=== PATIENT | female | born 1940 | race Caucasian/White ===

== ENCOUNTER 2019-02-26 15:31 | Observation (INO) ==
[2019-02-26 17:29] LABS: Basophils % 0.5 % (0.0-0.8); Eosinophils # 0.1 10*3/uL (0.0-0.87); Eosinophils % 1.3 % (0.00-10.9); Hematocrit 39.3 VOL% (35.7-47.0); Hemoglobin 14.1 GM/DL (12.0-16.0); Immature Granulocytes % 0.4 %; Immature Granulocytes Absolute 0.03 #; Lymphocytes # 2.3 10*3/uL (1.4-4.0); Lymphocytes % 27.3 % (21.3-54.2); Mean Corpuscular HGB Conc 35.9 GM/DL (32-36); Mean Corpuscular Volume 97.3 FL (87-102); Mean Platelet Volume 9.1 FL (9.6-12.0); Monocytes % 6.9 % (1.7-12.7); Neutrophils % 63.6 % (38.7-73.9); Platelet Count 203 T/CUMM (130-400); Red Blood Count 4.04 MC/CUMM (3.8-5.5); Red Cell Distribution Width 12.6 % (9.3-17.3); White Blood Count 8.2 T/CUMM (4-12)
[2019-02-26 17:36] LABS: PT Patient Result 10.7 SECS (9.6-12.2)
[2019-02-26 17:50] LABS: Apearance,Urine CLOUDY (Clear); Bacteria,Urine Moderate /HPF (Few); Bilirubin,Urine Negative (Negative); Blood, Urine Small mg/dL (Negative); Glucose,Urine (UA) Negative (Negative); Hyaline Casts,Urine 4 /LPF (0-3); Ketones,Urine Negative (Negative); Mucus,Urine Occasional /LPF (Occasional); Nitrite,Urine Positive (Negative); Protein,Urine Negative; RBC,Urine 1 /HPF (0-4); Squamous Epithelial Cell,Urine Occasional /HPF (0-10); Urine Color Yellow (Yellow); Urine Specific Gravity 1.008 (1.001-1.035); Urine Urobilinogen < 2.0 EU/DL (0.2-1.0); WBC,Urine 3 /HPF (0-6)
[2019-02-26 18:00] LABS: Albumin 3.6 G/DL (3.4-5.0); Bilirubin,Total 1.3 MG/DL (0.2-1.0); Calcium 8.9 MG/DL (8.5-10.1); Osmolality,Calculated 289.4 MOS/KG (273-304); Total Protein 7.5 G/DL (6.4-8.3)
[2019-02-26] MEDS ORDERED: POTASSIUM CHLORIDE 20 MEQ TABLET PO STA (18:17)
[2019-02-26] MEDS ORDERED: cefTRIAXone 1,000 MG in SODIUM CHLORIDE 0.9% 100 ML IV STA (18:18)
[2019-02-26] MEDS ORDERED: ACETAMINOPHEN 325 MG TABLET PO PRN (18:47)
[2019-02-26] MEDS ORDERED: ONDANSETRON 4 MG/2 ML VIAL IV PRN (18:47)
[2019-02-26] MEDS ORDERED: traMADol 50 MG TABLET PO PRN (18:52)
[2019-02-26] MEDS ORDERED: SODIUM CHLORIDE 0.9% 1,000 ML IV SCH (19:00)
[2019-02-26] MEDS: PHENYTOIN ER 100 MG CAPSULE PO SCH (21:57)
[2019-02-26] MEDS: clonazePAM 0.5 MG TABLET PO SCH (21:57)
[2019-02-26] MEDS: MEMANTINE 10 MG TABLET PO SCH (21:58)
[2019-02-26] MEDS: ENOXAPARIN 40 MG/0.4 ML SYRINGE SUBCUT SCH (21:58)
[2019-02-26] MEDS: TEMAZEPAM 15 MG CAPSULE PO SCH (21:58)
[2019-02-26] MEDS: DOCUSATE/SENNA 50-8.6 MG TABLET PO SCH (21:58)
[2019-02-26] MEDS: ROSUVASTATIN 20 MG TABLET PO SCH (21:58)
[2019-02-26] MEDS: LACOSAMIDE 50 MG TABLET PO SCH (21:58)
[2019-02-26] MEDS: ASPIRIN EC 81 MG TABLET PO SCH (21:58)
[2019-02-26] MEDS ORDERED: POTASSIUM CHLORIDE 20 MEQ TABLET PO ONE (22:00)
[2019-02-26] MEDS ORDERED: NITROGLYCERIN SL 0.4 MG TABLET SL PRN (22:22)
[2019-02-26] MEDS ORDERED: GLUCAGON 1 MG VIAL IM PRN (22:22)
[2019-02-26] MEDS ORDERED: DEXTROSE 50% 25 GM/50 ML VIAL IV PRN (22:22)
[2019-02-26] MEDS: INSULIN REGULAR 100 UNIT/ML SUBCUT SCH (23:18)
[2019-02-26] MEDS: CARVEDILOL 12.5 MG TABLET PO SCH (23:18)
[2019-02-27 06:51] LABS: Basophils # 0.1 10*3/uL (0.0-0.2); Basophils % 0.8 % (0.0-0.8); Eosinophils # 0.2 10*3/uL (0.0-0.87); Eosinophils % 3.7 % (0.00-10.9); Hematocrit 38.1 VOL% (35.7-47.0); Hemoglobin 13.4 GM/DL (12.0-16.0); Immature Granulocytes % 0.5 %; Immature Granulocytes Absolute 0.03 #; Lymphocytes # 2.3 10*3/uL (1.4-4.0); Mean Corpuscular HGB Conc 35.2 GM/DL (32-36); Mean Corpuscular Volume 98.4 FL (87-102); Monocytes % 8.2 % (1.7-12.7); Neutrophils % 51.8 % (38.7-73.9); Platelet Count 172 T/CUMM (130-400); Red Blood Count 3.87 MC/CUMM (3.8-5.5); Red Cell Distribution Width 12.9 % (9.3-17.3); White Blood Count 6.6 T/CUMM (4-12)
[2019-02-27 07:14] LABS: Alanine Aminotransferase 76 U/L (13-56); Albumin 3.2 G/DL (3.4-5.0); Alkaline Phosphatase 139 U/L (45-117); Aspartate Amino Transferase 68 U/L (0-37); Bilirubin,Total < 0.39 MG/DL (0.2-1.0); Blood Urea Nitrogen 25 MG/DL (7-18); Calcium 8.6 MG/DL (8.5-10.1); Estimated Glom Filtration Rate 59 ML/MIN; Glucose 159 MG/DL (74-106); Osmolality,Calculated 281.7 MOS/KG (273-304); Total Protein 6.7 G/DL (6.4-8.3)
[2019-02-27] MEDS: INSULIN REGULAR 100 UNIT/ML SUBCUT SCH ×4 (08:36→21:36)
[2019-02-27] MEDS: MEMANTINE 10 MG TABLET PO SCH ×2 (08:37→21:36)
[2019-02-27] MEDS: ISOSORBIDE MONONITRATE 30 MG TABLET PO SCH (08:37)
[2019-02-27] MEDS: LACOSAMIDE 50 MG TABLET PO SCH ×2 (08:37→21:35)
[2019-02-27] MEDS: POTASSIUM CHLORIDE 20 MEQ TABLET PO PRN ×4 (08:37→16:40)
[2019-02-27] MEDS: PHENYTOIN ER 100 MG CAPSULE PO SCH ×2 (08:37→21:35)
[2019-02-27] MEDS: FAMOTIDINE 20 MG TABLET PO SCH (08:37)
[2019-02-27] MEDS: FUROSEMIDE 40 MG TABLET PO SCH (08:38)
[2019-02-27] MEDS: hydroCHLOROthiazide 25 MG TABLET PO SCH (08:38)
[2019-02-27] MEDS: clonazePAM 0.5 MG TABLET PO SCH ×2 (08:38→21:36)
[2019-02-27] MEDS: MULTIVITAMIN (BEROCCA) TABLET PO SCH (08:38)
[2019-02-27] MEDS: CLOPIDOGREL 75 MG TABLET PO SCH (08:38)
[2019-02-27] MEDS: PANTOPRAZOLE 40 MG TABLET PO SCH (08:38)
[2019-02-27] MEDS: DOCUSATE/SENNA 50-8.6 MG TABLET PO SCH ×2 (08:38→21:36)
[2019-02-27] MEDS: MAGNESIUM OXIDE 400 MG TABLET PO SCH (08:38)
[2019-02-27] MEDS: EZETIMIBE 10 MG TABLET PO SCH (08:38)
[2019-02-27] MEDS: RALOXIFENE 60 MG TABLET PO SCH (08:39)
[2019-02-27] MEDS: ALLOPURINOL 100 MG TABLET PO SCH (08:39)
[2019-02-27] MEDS: CITALOPRAM 20 MG TABLET PO SCH (08:39)
[2019-02-27] MEDS: CARVEDILOL 12.5 MG TABLET PO SCH ×2 (08:39→16:40)
[2019-02-27] MEDS: FOLIC ACID VIT B6 VIT B12 PO SCH (08:39)
[2019-02-27] MEDS: MULTIVITAMIN (CENTRUM) TABLET PO SCH (08:39)
[2019-02-27] MEDS: IBUPROFEN 800 MG TABLET PO SCH (08:39)
[2019-02-27] MEDS: MULTIVITAMIN (OCUVITE) TABLET PO SCH (12:37)
[2019-02-27] MEDS ORDERED: cefTRIAXone 1,000 MG in SYRINGE 1 EACH IV SCH (18:00)
[2019-02-27] MEDS: ROSUVASTATIN 20 MG TABLET PO SCH (21:35)
[2019-02-27] MEDS: TEMAZEPAM 15 MG CAPSULE PO SCH (21:36)
[2019-02-27] MEDS: ASPIRIN EC 81 MG TABLET PO SCH (21:36)
[2019-02-27] MEDS: ENOXAPARIN 40 MG/0.4 ML SYRINGE SUBCUT SCH (21:36)
[2019-02-28] MEDS: INSULIN REGULAR 100 UNIT/ML SUBCUT SCH ×4 (08:14→23:09)
[2019-02-28 08:28] LABS: Basophils # 0.1 10*3/uL (0.0-0.2); Basophils % 1.1 % (0.0-0.8); Eosinophils # 0.4 10*3/uL (0.0-0.87); Eosinophils % 5.8 % (0.00-10.9); Hematocrit 38.5 VOL% (35.7-47.0); Hemoglobin 13.4 GM/DL (12.0-16.0); Immature Granulocytes % 0.3 %; Immature Granulocytes Absolute 0.02 #; Lymphocytes # 2.8 10*3/uL (1.4-4.0); Lymphocytes % 44.2 % (21.3-54.2); Mean Corpuscular HGB Conc 34.8 GM/DL (32-36); Mean Corpuscular Volume 99.7 FL (87-102); Mean Platelet Volume 9.2 FL (9.6-12.0); Monocytes % 7.1 % (1.7-12.7); Neutrophils % 41.5 % (38.7-73.9); Platelet Count 179 T/CUMM (130-400); Red Blood Count 3.86 MC/CUMM (3.8-5.5); Red Cell Distribution Width 13.1 % (9.3-17.3); White Blood Count 6.3 T/CUMM (4-12)
[2019-02-28 08:50] LABS: Bilirubin,Total 0.4 MG/DL (0.2-1.0); Calcium 8.9 MG/DL (8.5-10.1); Osmolality,Calculated 281.5 MOS/KG (273-304); Total Protein 6.7 G/DL (6.4-8.3)
[2019-02-28] MEDS: MULTIVITAMIN (CENTRUM) TABLET PO SCH (08:51)
[2019-02-28] MEDS: CLOPIDOGREL 75 MG TABLET PO SCH (08:51)
[2019-02-28] MEDS: PANTOPRAZOLE 40 MG TABLET PO SCH (08:52)
[2019-02-28] MEDS: EZETIMIBE 10 MG TABLET PO SCH (08:52)
[2019-02-28] MEDS: RALOXIFENE 60 MG TABLET PO SCH (08:52)
[2019-02-28] MEDS: PHENYTOIN ER 100 MG CAPSULE PO SCH ×2 (08:52→23:08)
[2019-02-28] MEDS: ALLOPURINOL 100 MG TABLET PO SCH (08:53)
[2019-02-28] MEDS: MAGNESIUM OXIDE 400 MG TABLET PO SCH (08:53)
[2019-02-28] MEDS: DOCUSATE/SENNA 50-8.6 MG TABLET PO SCH ×2 (08:53→23:07)
[2019-02-28] MEDS: ISOSORBIDE MONONITRATE 30 MG TABLET PO SCH (08:54)
[2019-02-28] MEDS: CARVEDILOL 12.5 MG TABLET PO SCH ×2 (08:54→16:58)
[2019-02-28] MEDS: CITALOPRAM 20 MG TABLET PO SCH (08:54)
[2019-02-28] MEDS: MULTIVITAMIN (BEROCCA) TABLET PO SCH (08:54)
[2019-02-28] MEDS: FAMOTIDINE 20 MG TABLET PO SCH (08:54)
[2019-02-28] MEDS: FUROSEMIDE 40 MG TABLET PO SCH (08:54)
[2019-02-28] MEDS: IBUPROFEN 800 MG TABLET PO SCH (08:55)
[2019-02-28] MEDS: POTASSIUM CHLORIDE 20 MEQ TABLET PO PRN ×3 (08:56→12:02)
[2019-02-28] MEDS: clonazePAM 0.5 MG TABLET PO SCH ×2 (08:57→23:08)
[2019-02-28] MEDS ORDERED: LOSARTAN 25 MG TABLET PO SCH (09:00)
[2019-02-28] MEDS: FOLIC ACID VIT B6 VIT B12 PO SCH (09:04)
[2019-02-28] MEDS: hydroCHLOROthiazide 25 MG TABLET PO SCH (09:05)
[2019-02-28] MEDS: LACOSAMIDE 50 MG TABLET PO SCH ×2 (09:05→23:08)
[2019-02-28] MEDS: MEMANTINE 10 MG TABLET PO SCH ×2 (09:05→23:08)
[2019-02-28] MEDS: MULTIVITAMIN (OCUVITE) TABLET PO SCH (12:01)
[2019-02-28] MEDS: CEFUROXIME 250 MG TABLET PO SCH ×2 (15:38→23:08)
[2019-02-28] MEDS: TEMAZEPAM 15 MG CAPSULE PO SCH (23:07)
[2019-02-28] MEDS: ASPIRIN EC 81 MG TABLET PO SCH (23:08)
[2019-02-28] MEDS: ROSUVASTATIN 20 MG TABLET PO SCH (23:08)
[2019-02-28] MEDS: ENOXAPARIN 40 MG/0.4 ML SYRINGE SUBCUT SCH (23:09)
[2019-03-01 05:29] LABS: Basophils # 0.1 10*3/uL (0.0-0.2); Eosinophils # 0.4 10*3/uL (0.0-0.87); Eosinophils % 6.3 % (0.00-10.9); Hematocrit 38.5 VOL% (35.7-47.0); Hemoglobin 13.3 GM/DL (12.0-16.0); Immature Granulocytes % 0.3 %; Immature Granulocytes Absolute 0.02 #; Lymphocytes # 3.1 10*3/uL (1.4-4.0); Lymphocytes % 43.7 % (21.3-54.2); Mean Corpuscular HGB Conc 34.5 GM/DL (32-36); Mean Corpuscular Volume 100.5 FL (87-102); Mean Platelet Volume 9.2 FL (9.6-12.0); Monocytes % 7.8 % (1.7-12.7); Neutrophils % 40.9 % (38.7-73.9); Platelet Count 172 T/CUMM (130-400); Red Blood Count 3.83 MC/CUMM (3.8-5.5); Red Cell Distribution Width 13.1 % (9.3-17.3)
[2019-03-01 05:45] LABS: Alanine Aminotransferase 67 U/L (13-56); Albumin 3.1 G/DL (3.4-5.0); Alkaline Phosphatase 131 U/L (45-117); Aspartate Amino Transferase 68 U/L (0-37); Bilirubin,Total < 0.39 MG/DL (0.2-1.0); Blood Urea Nitrogen 18 MG/DL (7-18); Calcium 8.6 MG/DL (8.5-10.1); Estimated Glom Filtration Rate 52 ML/MIN; Glucose 118 MG/DL (74-106); Osmolality,Calculated 281.4 MOS/KG (273-304); Total Protein 6.6 G/DL (6.4-8.3)
[2019-03-01] MEDS: hydroCHLOROthiazide 25 MG TABLET PO SCH (10:10)
[2019-03-01] MEDS: PANTOPRAZOLE 40 MG TABLET PO SCH (10:10)
[2019-03-01] MEDS: PHENYTOIN ER 100 MG CAPSULE PO SCH (10:10)
[2019-03-01] MEDS: clonazePAM 0.5 MG TABLET PO SCH (10:11)
[2019-03-01] MEDS: IBUPROFEN 800 MG TABLET PO SCH (10:11)
[2019-03-01] MEDS: EZETIMIBE 10 MG TABLET PO SCH (10:11)
[2019-03-01] MEDS: MULTIVITAMIN (CENTRUM) TABLET PO SCH (10:11)
[2019-03-01] MEDS: DOCUSATE/SENNA 50-8.6 MG TABLET PO SCH (10:11)
[2019-03-01] MEDS: RALOXIFENE 60 MG TABLET PO SCH (10:11)
[2019-03-01] MEDS: ISOSORBIDE MONONITRATE 30 MG TABLET PO SCH (10:12)
[2019-03-01] MEDS: MEMANTINE 10 MG TABLET PO SCH (10:12)
[2019-03-01] MEDS: MAGNESIUM OXIDE 400 MG TABLET PO SCH (10:12)
[2019-03-01] MEDS: FUROSEMIDE 40 MG TABLET PO SCH (10:12)
[2019-03-01] MEDS: FAMOTIDINE 20 MG TABLET PO SCH (10:12)
[2019-03-01] MEDS: LACOSAMIDE 50 MG TABLET PO SCH (10:12)
[2019-03-01] MEDS: ALLOPURINOL 100 MG TABLET PO SCH (10:12)
[2019-03-01] MEDS: CLOPIDOGREL 75 MG TABLET PO SCH (10:12)
[2019-03-01] MEDS: CITALOPRAM 20 MG TABLET PO SCH (10:13)
[2019-03-01] MEDS: CARVEDILOL 12.5 MG TABLET PO SCH (10:35)
[2019-03-01] MEDS: INSULIN REGULAR 100 UNIT/ML SUBCUT SCH ×2 (10:35→14:25)
[2019-03-01] MEDS: FOLIC ACID VIT B6 VIT B12 PO SCH (10:48)
[2019-03-01] MEDS: MULTIVITAMIN (BEROCCA) TABLET PO SCH (10:57)
[2019-03-01] MEDS ORDERED: AMOXICILLIN/CLAV 875 MG TABLET PO SCH (11:00)
[2019-03-01 13:34] VITALS: BP 121/68
[2019-03-01] MEDS: MULTIVITAMIN (OCUVITE) TABLET PO SCH (14:25)
== END 2019-03-01 15:30 | disposition home or self-care (01) ==
LOC: EDBD → EDSEX → EDUNIT# → N.ED 15:31 → N.EDINP 15:31 → N.5E 20:11
PROVIDERS: ADMIT Internal Medicine; ATTEND Internal Medicine